=== PATIENT | female | born 1940 | race Caucasian/White ===

== ENCOUNTER 2023-11-03 14:50 | Inpatient (IN) | payer BC ==
[~2023-11-03] VITALS: Ht 167.6 cm; Wt 105.0 kg
[2023-11-04] VITALS (9 sets, daily range): BP systolic 98–111; BP diastolic 44–68; PULSE 68–128; RESP 16–22; TEMP 96.5–97.6; O2SAT 3–100
[2023-11-04] MEDS ORDERED: NITROGLYCERIN 0.4 MG SL TAB SL PRN (01:00)
[2023-11-04] MEDS ORDERED: MORPHINE SULFATE INJ 2 MG/ml SYRG IV PRN (01:00)
[2023-11-04] MEDS ORDERED: HYDROcodone-ACET 5/325MG TAB PO PRN (01:00)
[2023-11-04] MEDS ORDERED: DEXTROSE (50%) 50ML SYRG IV PRN (01:15)
[2023-11-04 01:56] LABS: Basophils # (auto) 0 10 ^3/uL (0-0.2); Basophils % (auto) 0.3 % (0.0-2.0); Eosinophils # (auto) 0.1 10 ^3/uL (0-0.8); Eosinophils % (auto) 1.4 % (0.0-7.0); Hematocrit 36.9 % (36.0-46.0); Hemoglobin 12.2 g/dL (12.2-16.2); Lymphocytes # (auto) 0.6 10 ^3/uL (0.4-5.4); Lymphocytes % (auto) 8.6 % (10.0-50.0); Mean Corpuscular Hemoglobin 32.2 pg (28.0-32.0); Mean Corpuscular Hgb Conc. 33.1 g/dL (32.0-36.0); Mean Corpuscular Volume 97.2 fL (80.0-100.0); Monocytes # (auto) 0.4 10 ^3/uL (0-1.3); Neutrophils # (auto) 6.2 10 ^3/uL (1.6-8.6); Neutrophils % (auto) 84.7 % (37.0-80.0); Nucleated Red Blood Cells % 0.1 %; Red Cell Distribution Width 15.1 % (11.8-14.3); White Blood Cell 7.3 10^3/uL (4.4-10.8)
[2023-11-04 02:01] LABS: Chloride 96 mmol/L (98-107); Potassium 3.9 mmol/L (3.5-5.1); Sodium 133 mmol/L (136-145)
[2023-11-04 02:02] LABS: Anion Gap 2 (5-15); Calcium 9.3 mg/dL (8.7-10.4); Carbon Dioxide 35 mmol/L (20-30)
[2023-11-04 02:07] LABS: BUN/Creatinine Ratio 44.7 (10.0-20.0); Blood Urea Nitrogen 34 mg/dL (9-23); Glucose 116 mg/dL (74-106); INR 1.29 (0.9-1.15); Prothrombin Time 13.3 sec (9.3-11.8)
[2023-11-04 02:08] LABS: Magnesium 2.2 mg/dL (1.6-2.6)
[2023-11-04] MEDS: InsuLIN REG 1unit/0.01ml Soln (100units/ml) SC SCH (05:06)
[2023-11-04] MEDS: ACCU-CHEK COMFORT CURVE STRIP VI SCH (05:07)
[2023-11-04] MEDS: PANTOPRAZOLE 40 MG/10 ML VIAL INJ IV SCH (08:43)
[2023-11-04] MEDS ORDERED: ENOXAPARIN SOD 40 MG/0.4 ML SYRINGE SC SCH (10:00)
[2023-11-04 12:28] LABS: Urine Bacteria FEW /hpf (None Seen); Urine Blood 2+ /uL (Negative); Urine Clarity Clear (Clear); Urine Color Yellow (Yellow); Urine Hyaline Cast FEW /lpf (0 - 2); Urine Protein, UAD TRACE (Negative); Urine Specific Gravity 1.014 (1.001-1.035); Urine Urobilinogen Normal (Negative); Urine WBC 3 /hpf (0 - 5); Urine pH 5.5 (5.0-8.0)
[2023-11-04] MEDS: MELATONIN 5 MG TAB PO PRN (21:41)
[2023-11-04] MEDS: APIXABAN 2.5 MG TAB PO SCH (21:41)
[2023-11-04] MEDS: AMIODARONE HCL 200 MG TAB PO SCH (21:41)
[2023-11-04] MEDS: METOPROLOL TARTRATE 25 MG TAB PO SCH (21:42)
[2023-11-05] VITALS (15 sets, daily range): BP systolic 83–123; BP diastolic 50–77; PULSE 113–142; RESP 18–20; TEMP 96.8–97.8; O2SAT 99–100
[2023-11-05] MEDS: AMIODARONE BOLUS KIT 100 ML IV ONE (08:25)
[2023-11-05] MEDS: AMIODARONE 450mg/250ml AE 250 ML IV SCH (14:04)
[2023-11-05] MEDS: DIGOXIN (250MCG/ML) 2 ML AMPULE IV ONE (16:01)
[2023-11-06] VITALS (64 sets, daily range): BP systolic 76–116; BP diastolic 37–95; PULSE 60–112; RESP 10–29; TEMP 97.1–97.9; O2SAT 98–100
[2023-11-06 07:06] LABS: INR 1.18 (0.9-1.15); Partial Thromboplastin Time 33.8 SEC (24.5-34.5); Prothrombin Time 12.3 sec (9.3-11.8)
[2023-11-06 07:10] LABS: Albumin 2.8 g/dL (3.2-4.8); Alkaline Phosphatase 86 U/L (46-116); Anion Gap 3 (5-15); Aspartate Aminotransferase 16 U/L (13-40); BUN/Creatinine Ratio 40.9 (10.0-20.0); Bilirubin, Total 0.4 mg/dL (0.2-1.0); Blood Urea Nitrogen 27 mg/dL (9-23); Carbon Dioxide 34 mmol/L (20-30); Chloride 91 mmol/L (98-107); Glucose 223 mg/dL (74-106); Magnesium 2.1 mg/dL (1.6-2.6); Potassium 4.2 mmol/L (3.5-5.1); Total Protein 5.5 g/dL (5.7-8.2)
[2023-11-06 07:17] LABS: Hematocrit 34.6 % (36.0-46.0); Hemoglobin 11.5 g/dL (12.2-16.2); Mean Corpuscular Hgb Conc. 33.4 g/dL (32.0-36.0); Mean Corpuscular Volume 95.7 fL (80.0-100.0); Red Blood Cells 3.61 10^6/uL (4.0-5.20); White Blood Cell 6.9 10^3/uL (4.4-10.8)
[2023-11-06 07:19] LABS: Basophils % (manual) 0 (0.0-2.0); Blast Cells 0; Metamyelocytes % 0; Myelocytes % 0; Promyelocytes % 0; Reactive Lymphocytes 0
[2023-11-06 07:20] LABS: Alanine Aminotransferase < 9 U/L (7-40); Sodium 128 mmol/L (136-145)
[2023-11-06 07:54] LABS: Band Neutrophils % (manual) 3; Eosinophils % (manual) 2 (0-7); Lymphocytes % (manual) 14 (10.0-50.0); Monocytes % (manual) 8 (0-12)
[2023-11-06 07:55] LABS: Anisocytosis Slight; Platelet Estimate Adequate
[2023-11-06] MEDS: ONDANSETRON HCL 4 MG/2 ML VIAL IV PRN (14:38)
[2023-11-06] MEDS: ACETAMINOPHEN 325 MG TAB PO PRN (14:43)
[2023-11-06] MEDS: MIDAZOLAM HCL 2MG/2ML 2ml VIAL (1mg/ml) ONE (18:19)
[2023-11-06] MEDS: fentaNYL CITRATE 100 MCG/2 ML VL ONE (18:19)
[2023-11-06] MEDS: LIDOCAINE VISCOUS 2% 15ML UD ONE (18:25)
[2023-11-06] MEDS: LIDOCAINE VISCOUS 2% 15ML UD PO ONE (18:45)
[2023-11-06] MEDS: fentaNYL CITRATE 100 MCG/2 ML VL IV ONE (18:50)
[2023-11-06] MEDS: MIDAZOLAM HCL 2MG/2ML 2ml VIAL (1mg/ml) IV ONE (18:50)
[2023-11-06] MEDS: TEMAZEPAM 15 MG CAP PO PRN (21:47)
[2023-11-07] VITALS (7 sets, daily range): BP systolic 112–125; BP diastolic 42–62; PULSE 57–66; RESP 17–20; TEMP 97.8–98.6; O2SAT 96–100
[2023-11-07] MEDS: PANTOPRAZOLE 40 MG/10 ML VIAL INJ IV SCH (11:04)
[2023-11-07 11:08] LABS: Basophils # (auto) 0 10 ^3/uL (0-0.2); Basophils % (auto) 0.5 % (0.0-2.0); Eosinophils # (auto) 0.1 10 ^3/uL (0-0.8); Eosinophils % (auto) 0.9 % (0.0-7.0); Hematocrit 34.4 % (36.0-46.0); Hemoglobin 11.4 g/dL (12.2-16.2); Lymphocytes # (auto) 0.7 10 ^3/uL (0.4-5.4); Lymphocytes % (auto) 8.8 % (10.0-50.0); Mean Corpuscular Hemoglobin 31.9 pg (28.0-32.0); Mean Corpuscular Hgb Conc. 33.2 g/dL (32.0-36.0); Mean Corpuscular Volume 96.1 fL (80.0-100.0); Monocytes # (auto) 0.8 10 ^3/uL (0-1.3); Monocytes % (auto) 10.1 % (0.0-12.0); Neutrophils # (auto) 6.5 10 ^3/uL (1.6-8.6); Neutrophils % (auto) 79.7 % (37.0-80.0); Nucleated Red Blood Cells % 0.1 %; Red Blood Cells 3.58 10^6/uL (4.0-5.20); Red Cell Distribution Width 14.8 % (11.8-14.3); White Blood Cell 8.1 10^3/uL (4.4-10.8)
[2023-11-07 11:28] LABS: Chloride 93 mmol/L (98-107); Sodium 132 mmol/L (136-145)
[2023-11-07 11:29] LABS: Anion Gap 0 (5-15); Calcium 8.6 mg/dL (8.5-10.1); Carbon Dioxide 39 mmol/L (20-30)
[2023-11-07 11:34] LABS: BUN/Creatinine Ratio 58.6 (10.0-20.0); Blood Urea Nitrogen 34 mg/dL (9-23); Glucose 101 mg/dL (74-106)
[2023-11-08] VITALS (7 sets, daily range): BP systolic 106–121; BP diastolic 36–55; PULSE 56–70; RESP 17–20; TEMP 97.1–97.6; O2SAT 91–100
[2023-11-08] MEDS: ACETAMINOPHEN 325 MG TAB PO PRN (17:56)
[2023-11-08] MEDS ORDERED: HYDROcodone-ACET 5/325MG TAB PO PRN (18:00)
[2023-11-08 20:16] LABS: Hematocrit 31.9 % (36.0-46.0); Hemoglobin 10.6 g/dL (12.2-16.2)
[2023-11-09 05:00] VITALS: BP 116/49; PULSE 63; RESP 16; TEMP 97.5; O2SAT 100
[2023-11-09 08:00] VITALS: PULSE 64
[2023-11-09 08:29] LABS: Hematocrit 31.7 % (36.0-46.0); Hemoglobin 10.3 g/dL (12.2-16.2)
[2023-11-09 09:00] VITALS: BP 115/80; PULSE 64; RESP 16; TEMP 97.3; O2SAT 98
== END 2023-11-09 13:35 | DRG 308 ==
LOC: TELE-EAST 11-04 00:13 → ICU WEST 11-06 05:50 → TELE-EAST 11-06 20:20
PROVIDERS: ADMIT Hospitalist; ATTEND Internal Medicine
PROC: 5A2204Z Restoration of Cardiac Rhythm, Single (ICD-10-PCS; principal; 2023-11-06)
DX: I48.11 Longstanding persistent atrial fibrillation (principal); J96.00 Acute respiratory failure, unspecified whether with hypoxia or hypercapnia; J90 Pleural effusion, not elsewhere classified; I50.32 Chronic diastolic (congestive) heart failure; H35.30 Unspecified macular degeneration; I08.1 Rheumatic disorders of both mitral and tricuspid valves; E11.9 Type 2 diabetes mellitus without complications; I95.9 Hypotension, unspecified; I11.0 Hypertensive heart disease with heart failure; K21.9 Gastro-esophageal reflux disease without esophagitis; K29.70 Gastritis, unspecified, without bleeding; Z79.01 Long term (current) use of anticoagulants; Z79.84 Long term (current) use of oral hypoglycemic drugs; Z83.3 Family history of diabetes mellitus; Z87.891 Personal history of nicotine dependence
CPT/HCPCS: 36415; 71045; 80048; 80053; 81001; 82270; 82962; 83735; 84484; 85007; 85014; 85018; 85025; 85027; 85610; 85730; 87081; 92960; 93005; 93306; 97110; 97163; C9113; G0378; J2250; J2405

== ENCOUNTER 2023-11-11 14:46 | Inpatient (IN) | payer BC ==
[~2023-11-11] VITALS: Ht 167.6 cm; Wt 95.4 kg
[2023-11-11 16:14] LABS: Basophils # (auto) 0.1 10 ^3/uL (0-0.2); Eosinophils # (auto) 0.2 10 ^3/uL (0-0.8); Eosinophils % (auto) 1.7 % (0.0-7.0); Hematocrit 32.5 % (36.0-46.0); Hemoglobin 10.4 g/dL (12.2-16.2); Lymphocytes # (auto) 1.2 10 ^3/uL (0.4-5.4); Lymphocytes % (auto) 11.8 % (10.0-50.0); Mean Corpuscular Hemoglobin 31.3 pg (28.0-32.0); Mean Corpuscular Volume 97.9 fL (80.0-100.0); Monocytes # (auto) 0.9 10 ^3/uL (0-1.3); Monocytes % (auto) 8.9 % (0.0-12.0); Neutrophils # (auto) 7.5 10 ^3/uL (1.6-8.6); Neutrophils % (auto) 76.6 % (37.0-80.0); Red Blood Cells 3.32 10^6/uL (4.0-5.20); Red Cell Distribution Width 15.3 % (11.8-14.3); White Blood Cell 9.8 10^3/uL (4.4-10.8)
[2023-11-11 16:16] LABS: Alanine Aminotransferase 13 U/L (7-40); Alkaline Phosphatase 103 U/L (46-116); Anion Gap 2 (5-15); Calcium 8.5 mg/dL (8.7-10.4); Carbon Dioxide 36 mmol/L (20-30); Chloride 98 mmol/L (98-107); Glucose 112 mg/dL (74-106); Lipase 93 U/L (12-53); Potassium 4.7 mmol/L (3.5-5.1); Sodium 136 mmol/L (136-145)
[2023-11-11 16:17] LABS: Albumin 3.1 g/dL (3.2-4.8); Aspartate Aminotransferase 25 U/L (13-40); BUN/Creatinine Ratio 28.8 (10.0-20.0); Bilirubin, Total 0.4 mg/dL (0.2-1.0); Blood Urea Nitrogen 17 mg/dL (9-23); Total Protein 5.2 g/dL (5.7-8.2)
[2023-11-11 16:18] LABS: Base Excess 11.6 mmol/L (-2.0-2.0)
[2023-11-11 16:30] LABS: INR 1.06 (0.9-1.15); Prothrombin Time 11.1 sec (9.3-11.8)
[2023-11-11 16:47] VITALS: PULSE 64; RESP 24; O2SAT 100
[2023-11-11] MEDS ORDERED: NITROGLYCERIN 0.4 MG SL TAB SL PRN (17:00)
[2023-11-11] MEDS ORDERED: MORPHINE SULFATE INJ 2 MG/ml SYRG IV PRN ×2 (17:00)
[2023-11-11] MEDS ORDERED: ONDANSETRON HCL 4 MG/2 ML VIAL IV PRN (17:00)
[2023-11-11 18:29] LABS: Urine Bacteria NONE SEEN /hpf (None Seen); Urine Blood Negative /uL (Negative); Urine Clarity Clear (Clear); Urine Color Colorless (Yellow); Urine Protein, UAD Negative (Negative); Urine Specific Gravity 1.008 (1.001-1.035); Urine Urobilinogen Normal (Negative); Urine WBC <1 /hpf (0 - 5)
[2023-11-11 19:00] VITALS: PULSE 63; RESP 16; O2SAT 100
[2023-11-11] MEDS: ACETAMINOPHEN 325 MG TAB PO PRN (19:57)
[2023-11-11] MEDS: IOHEXOL 350 MG/ML 100ML IJ ONE (20:26)
[2023-11-11 23:15] VITALS: BP_SYST 120; BP_SYST 123; BP_DIAS 63; BP_DIAS 66; PULSE 63; RESP 17; TEMP 97.8; O2SAT 96
[2023-11-12] VITALS (9 sets, daily range): BP systolic 115–133; BP diastolic 52–66; PULSE 60–77; RESP 16–18; TEMP 97–98.7; O2SAT 94–99
[2023-11-12] MEDS ORDERED: CYCL0.05 EACHEYE (00:08)
[2023-11-12] MEDS ORDERED: TIMO0.5S28 EACHEYE (00:08)
[2023-11-12] MEDS: MELATONIN 5 MG TAB PO ONE (00:21)
[2023-11-12 06:23] LABS: Basophils # (auto) 0.1 10 ^3/uL (0-0.2); Basophils % (auto) 0.9 % (0.0-2.0); Eosinophils # (auto) 0.2 10 ^3/uL (0-0.8); Eosinophils % (auto) 1.9 % (0.0-7.0); Hematocrit 30.2 % (36.0-46.0); Hemoglobin 9.9 g/dL (12.2-16.2); Lymphocytes # (auto) 1.1 10 ^3/uL (0.4-5.4); Mean Corpuscular Hemoglobin 31.6 pg (28.0-32.0); Mean Corpuscular Hgb Conc. 32.9 g/dL (32.0-36.0); Mean Corpuscular Volume 96.1 fL (80.0-100.0); Monocytes # (auto) 0.9 10 ^3/uL (0-1.3); Monocytes % (auto) 10.3 % (0.0-12.0); Neutrophils # (auto) 6.3 10 ^3/uL (1.6-8.6); Neutrophils % (auto) 73.9 % (37.0-80.0); Red Blood Cells 3.14 10^6/uL (4.0-5.20); Red Cell Distribution Width 15.4 % (11.8-14.3); White Blood Cell 8.5 10^3/uL (4.4-10.8)
[2023-11-12 06:34] LABS: Alanine Aminotransferase 12 U/L (7-40); Alkaline Phosphatase 94 U/L (46-116); Anion Gap 3 (5-15); Aspartate Aminotransferase 18 U/L (13-40); BUN/Creatinine Ratio 21.1 (10.0-20.0); Bilirubin, Total 0.5 mg/dL (0.2-1.0); Blood Urea Nitrogen 12 mg/dL (9-23); Calcium 8.9 mg/dL (8.7-10.4); Carbon Dioxide 36 mmol/L (20-30); Chloride 98 mmol/L (98-107); Glucose 93 mg/dL (74-106); Potassium 4.3 mmol/L (3.5-5.1); Sodium 137 mmol/L (136-145); Total Protein 5.3 g/dL (5.7-8.2)
[2023-11-12] MEDS: ENOXAPARIN SOD 40 MG/0.4 ML SYRINGE SC SCH (11:45)
[2023-11-12] MEDS: MELATONIN 5 MG TAB PO PRN (22:06)
[2023-11-13] VITALS (7 sets, daily range): BP systolic 135–150; BP diastolic 55–74; PULSE 60–89; RESP 16–20; TEMP 96.5–98.2; O2SAT 92–100
[2023-11-13 19:33] LABS: Body Fluid Polymorphonuclear 12 % (0-25); Body Fluid Red Blood Cells 1910 CUMM (0-2000); Body Fluid White Blood Cells 440 CUMM (0-200)
[2023-11-13] MEDS: IOHEXOL 350 MG/ML 100ML IJ ONE (20:49)
[2023-11-13] MEDS: HYDROcodone-ACET 5/325MG TAB PO PRN (21:09)
[2023-11-13] MEDS: APIXABAN 5 MG TAB PO SCH (21:09)
[2023-11-13] MEDS: DOCUSATE SOD 100 MG CAP PO PRN (21:09)
[2023-11-14] VITALS (7 sets, daily range): BP systolic 125–141; BP diastolic 54–70; PULSE 62–77; RESP 18; TEMP 97.5–98; O2SAT 94–100
[2023-11-14] MEDS: levoFLOXacin 500MG 100 ML IV SCH (10:00)
[2023-11-14] MEDS ORDERED: LEVO500T91 PO (15:03)
[2023-11-14] MEDS ORDERED: CARV3.1240 PO (15:44)
[2023-11-14] MEDS ORDERED: PANT40TA2 PO (15:44)
[2023-11-14] MEDS ORDERED: APIX5TAB PO (15:44)
[2023-11-14] MEDS ORDERED: DILT60TA PO (15:44)
[2023-11-14] MEDS ORDERED: HYDR12.59 PO (15:44)
[2023-11-14] MEDS ORDERED: GABA-1250 PO (15:44)
[2023-11-14] MEDS ORDERED: FLUT50SP EACHNOSTRI (15:44)
[2023-11-14] MEDS ORDERED: MET25T PO (15:44)
== END 2023-11-14 18:12 | DRG 177 ==
LOC: EDBD 14:46 → ER 14:46 → TELE-WESTW 16:54 → TELE 16:54 → TELE-WESTW 21:46
PROVIDERS: ADMIT Internal Medicine; ATTEND Internal Medicine
PROC: 05HC33Z Insertion of Infusion Device into Left Basilic Vein, Percutaneous Approach (ICD-10-PCS; 2023-11-11)
PROC: B54NZZA Ultrasonography of Left Upper Extremity Veins, Guidance (ICD-10-PCS; 2023-11-11)
PROC: 0W993ZZ Drainage of Right Pleural Cavity, Percutaneous Approach (ICD-10-PCS; principal; 2023-11-13)
DX: J69.0 Pneumonitis due to inhalation of food and vomit (principal); J96.01 Acute respiratory failure with hypoxia; J96.02 Acute respiratory failure with hypercapnia; J91.8 Pleural effusion in other conditions classified elsewhere; I11.0 Hypertensive heart disease with heart failure; E11.9 Type 2 diabetes mellitus without complications; I50.9 Heart failure, unspecified; I48.0 Paroxysmal atrial fibrillation; E66.9 Obesity, unspecified; Z68.34 Body mass index [BMI] 34.0-34.9, adult; Z83.3 Family history of diabetes mellitus; Z81.1 Family history of alcohol abuse and dependence; Z91.010 Allergy to peanuts; Z87.01 Personal history of pneumonia (recurrent)
CPT/HCPCS: 36415; 36600; 71045; 71275; 80053; 81001; 82805; 83690; 83880; 83986; 84484; 85025; 85379; 85610; 87081; 87205; 89051; 93005; G0378